=== PATIENT | male | born 1935 | race Caucasian/White ===

== ENCOUNTER 2018-08-30 06:00 | Day surgery (SDC) | payer OTHER ==
[~2018-08-30 06:00] MED LIST: ALDACTONE25 MG PO; COZAAR100 MG PO; ISOSORBIDE MONO60 MG PO; LASIX20 MG PO; NITROGLYCERIN0.4 MG SL; NORVASC5 MG PO; PLAVIX75 MG PO; ZOCOR40 MG PO
== END 2018-08-30 11:30 | disposition home or self-care (01) ==
LOC: CIR.AMB 06:00
DX: R15.9 Full incontinence of feces (principal)
CPT/HCPCS: 64581; C1778

== ENCOUNTER 2018-09-13 05:50 | Day surgery (SDC) | payer OTHER | END 2018-09-13 12:55 | disposition home or self-care (01) | LOC: CIR.AMB 05:50 → AMB-ENDOS 07:00 → CIR.AMB 10:45 | DX: R15.9 Full incontinence of feces (principal) | CPT/HCPCS: 64590; C1767 ==